=== PATIENT | male | born 1970 | race Caucasian/White ===

== ENCOUNTER 2024-04-02 11:30 | Inpatient (IN) | payer OTHER, SELFPAY ==
[2024-04-02 11:31] VITALS: BP 153/87; PULSE 102; RESP 18; TEMP 36.8; O2SAT 94; BMI 31.1
--- NOTE | 2024-04-02 11:35 | ED.C_ITS ---
HPI - Psych 2 General: Chief Complaint: Psychiatric Symptoms Stated Complaint: SI Time Seen by Provider: 04/02/24 11:31 Source: patient Mode of arrival: ambulatory Limitations: no limitations History of Present Illness: 53-year-old male who is here with EMS [facility] that he has been having suicidal ideations. He states that he has been having increasing depression with thoughts to kill himself over the last week. He has a plan of hanging himself or shooting himself. Associated symptoms: Reports depression and suicidal ideation Related Data Home Medications ?Medication ?Instructions ?Recorded ?Confirmed No Known Home Medications 04/02/2408/19 Review of Systems 2 Const: Denies: fever(s), chills, body aches or change in appetite ENMT: Denies: throat pain or dental pain Card: Denies: chest pain Resp: Denies: dyspnea GI: Denies: abdominal pain, nausea, vomiting or diarrhea Musc: Denies: neck pain or back pain Skin/Breast: Denies: rash Neuro: Denies: headache(s) Psych: Reports: depression and suicidal ideation Physical Exam 2 Const: COMMON NORMALS: no acute distress, patient oriented x3 and healthy appearing HENMT: COMMON NORMALS: normocephalic and atraumatic HEAD & SCALP: n ormocephalic and atraumatic Eye: COMMON NORMALS: conjunctivae normal CONJUNCTIVA: Yes conjunctivae normal Neck/C-Spine: COMMON NORMALS: full ROM and supple Chest: COMMONS NORMALS: normal inspection of the chest Resp: COMMON NORMALS: normal respiratory effort Cardio: COMMON NORMALS: regular rate, regular rhythm and No murmurs present (Cardio) RATE: regular rate RHYTHM: regular rhythm GI: COMMON NORMALS: Normal to inspection, nondistended, normoactive bowel sounds present, Soft to palpation, non-tender and no masses PALPATION: Yes Soft to palpation Extremity: COMMON NORMALS: normal to inspection and full ROM Neuro: COMMON NORMALS: patient oriented x3, moves all extremities and no focal motor deficits Psych: COMMON NORMALS: mental status grossly normal, Normal thought process present and cooperative MOOD & AFFECT: Yes depressed mood THOUGHT PROCESS: Normal thought process present THOUGHT CONTENT: Yes Suicidality present Skin: COMMON NORMALS: no rashes or lesions noted and no wounds GENERAL SKIN EXAM: no rashes or lesions noted Course 2 Vital Signs: Vital signs: Vital Signs Temperature 98.2 F 04/02/24 11:31 Pulse Rate 102 H 04/02/24 11:31 Respiratory Rate 18 04/02/24 11:31 Blood Pressure 153/87 04/02/24 11:31 Pulse Oximetry 94 04/02/24 11:31 Oxygen Delivery Me thod Room Air 04/02/24 11:31 MDM - Psych Medical Decision Making Patient presents here with suicidal ideations patient is medically cleared I spoke to psychiatrist will admit at this time. Medical Records I reviewed the patient's medical records. Lab Data I reviewed the patient's lab results. 04/02/24 12:04 04/02/24 12:04 Laboratory Results WBC 10.89 10^3/uL (3.29-11.43) 04/02/24 12:04 RBC 5.35 10^6/uL (3.85-5.65) 04/02/24 12:04 Hgb 16.30 g/dL (11.27-16.99) 04/02/24 12:04 Hct 46.5 % (37-53) 04/02/24 12:04 MCV 86.9 fl (82-101) 04/02/24 12:04 MCH 30.5 pg (27-33) 04/02/24 12:04 MCHC 35.1 g/dL (30-55) 04/02/24 12:04 RDW 12.1 % (12.1-15.1) 04/02/24 12:04 Plt Count 237 10^3/cmm (157-399) 04/02/24 12:04 MPV 9.3 fL (7.4-10.4) 04/02/24 12:04 Neut % (Auto) 68.3 % 04/02/24 12:04 Lymph % (Auto) 24.1 % 04/02/24 12:04 Dixie % (Auto) 6.2 % 04/02/24 12:04 Eos % (Auto) 0.3 % 04/02/24 12:04 Baso % (Auto) 0.7 % 04/02/24 12:04 Neut # (Auto) 7.45 10^3/uL (1.8-7.7) 04/02/24 12:04 Lymph # (Auto) 2.6 10^3/uL (0.8-4.8) 04/02/24 12:04 Dixie # (Auto) 0.7 10^3/uL (0.2-0.9) 04/02/24 12:04 Eos # (Auto) 0.0 10^3/uL (0.0-0.8) 04/02/24 12:04 Baso # (Auto) 0.1 10^3/uL (0.0-0.1) 04/02/24 12:04 Nucleated RBC % (auto) 0 % 04/02/24 12:04 Nucleated RBCs # 0.0 /100WBC 04/02/24 12:04 Sodium 136 mmol/L (136-145) 04/02/24 12:04 Potassium 3.9 mmol/L (3.5-5.1) 04/02/24 12:04 Chloride 97 mmol/L (98-107) L 04/02/24 12:04 Carbon Dioxide 24 mmol/L (22-29) 04/02/24 12:04 Anion Gap 18.9 (5-19) 04/02/24 12:04 BUN 8 mg/dL (6-20) 04/02/24 12:04 Creatinine 0.8 mg/dL (0.7-1.2) 04/02/24 12:04 GFR Calculation 100.7 mL/min (90-130) 04/02/24 12:04 Glucose 108 mg/dL (65-115) 04/02/24 12:04 Calculated Osmolality 281 mOsm/kg (285-295) L 04/02/24 12:04 Calcium 9.4 mg/dL (8.5-10.5) 04/02/24 12:04 Total Bilirubin 0.7 mg/dL (0.15-1.2) 04/02/24 12:04 AST 26 U/L (0-40) 04/02/24 12:04 ALT 22 U/L (0-41) 04/02/24 12:04 Alkaline Phosphatase 65 U/L (40-130) 04/02/24 12:04 Total Protein 7.8 g/dL (6.6-8.7) 04/02/24 12:04 Albumin 5.0 g/dL (3.5-5.2) 04/02/24 12:04 Globulin 2.8 g/dL (1.3-4.6) 04/02/24 12:04 Salicylates < 0.3 mg/dL (3-10) L 04/02/24 12:04 Urine Opiates Screen Negative ng/mL (Negative) 04/02/24 11:43 Acetaminophen < 5.0 ug/mL (10-30) L 04/02/24 12:04 Ur Barbiturates Screen Negative ng/mL (Negative) 04/02/24 11:43 Ur Phencyclidine Scrn Negative ng/mL (Negative) 04/02/24 11:43 Ur Amphetamines Screen Positive ng/mL (Negative) H 04/02/24 11:43 U Benzodiazepines Scrn Negative ng/mL (Negative) 04/02/24 11:43 Urine Cocaine Screen Negative ng/mL (Negative) 04/02/24 11:43 U Marijuana (THC) Screen Positive ng/mL (Negative) H 04/02/24 11:43 Ethyl Alcohol < 10 mg/dL (0-10) 04/02/24 12:04 No radiology studies performed this visit Discharge Plan Discharge Patient Disposition: Admitted As Inpatient Clinical Impression: Suicidal ideation Condition: Stable Prescriptions: No Action No Known Home Medications Print Language: Norwegian Coding Level of Care Code ED Trainmaster for Maritza Saucedo
--- NOTE | 2024-04-02 12:00 | PC.NURSE ---
96 hour hold rights read and reviewed with patient. Wilian from security present during reading of rights. Patient verbalized understandings and copy of rights given to patient.
[2024-04-02 12:19] LABS: Basophils # 0.1 10^3/uL (0.0-0.1); Basophils % 0.7 %; Eosinophils % 0.3 %; Hematocrit 46.5 % (37-53); Lymphocytes # 2.6 10^3/uL (0.8-4.8); Lymphocytes % 24.1 %; Mean Corpuscular HGB Conc 35.1 g/dL (30-55); Mean Corpuscular Hemoglobin 30.5 pg (27-33); Mean Corpuscular Volume 86.9 fl (82-101); Mean Platelet Volume 9.3 fL (7.4-10.4); Monocytes # 0.7 10^3/uL (0.2-0.9); Monocytes % 6.2 %; Neutrophils # 7.45 10^3/uL (1.8-7.7); Neutrophils % 68.3 %; Nucleated Red Blood Cells % 0 %; Platelet Count 237 10^3/cmm (157-399); Red Blood Count 5.35 10^6/uL (3.85-5.65); Red Cell Distribution Width 12.1 % (12.1-15.1); White Blood Count 10.89 10^3/uL (3.29-11.43)
[2024-04-02 12:23] LABS: Amphetamines Screen Urine Positive (Negative); Barbiturates Screen Urine Negative (Negative); Benzodiazepines Screen Urine Negative (Negative); Cocaine Screen Urine Negative (Negative); Opiate Screen Urine Negative (Negative); PCP Screen Urine Negative (Negative); THC Screen Urine Positive (Negative)
[2024-04-02 12:38] LABS: Alanine Aminotransferase 22 U/L (0-41); Alkaline Phosphatase 65 U/L (40-130); Anion Gap 18.9 (5-19); Aspartate Amino Transferase 26 U/L (0-40); Blood Urea Nitrogen 8 mg/dL (6-20); Calcium 9.4 mg/dL (8.5-10.5); Carbon Dioxide 24 mmol/L (22-29); Chloride 97 mmol/L (98-107); Creatinine Clr Calc Pharmacy 109.4368; Globulin 2.8 g/dL (1.3-4.6); Glomerular Filtration Rate 100.7 mL/min (90-130); Glucose 108 mg/dL (65-115); Osmolality Calculated 281 mOsm/kg (285-295); Potassium 3.9 mmol/L (3.5-5.1); Sodium 136 mmol/L (136-145); Total Bilirubin 0.7 mg/dL (0.15-1.2); Total Protein 7.8 g/dL (6.6-8.7)
[2024-04-02 12:44] LABS: Acetaminophen < 5.0 ug/mL (10-30); Alcohol Level < 10 mg/dL (0-10); Salicylate < 0.3 mg/dL (3-10)
[2024-04-02 13:33] VITALS: BP 146/84; PULSE 97; O2SAT 96
[2024-04-02 14:04] VITALS: BP 165/95; PULSE 109; RESP 18; TEMP 37.4; O2SAT 97
--- NOTE | 2024-04-02 14:42 | PC.ADMIT ---
[address] [place] Admission Note: The patient,Johan Nelson,53 y/o, was given written information regarding hospital policies, unit procedures and contact persons. Patient's smoking status: . Vital Signs - 8 hr 04/02/24 11:31 04/02/24 13:33 04/02/24 14:07 Temperature 98.2 F Pulse Rate 102 H 97 Respiratory Rate 18 Blood Pressure 153/87 146/84 Pulse Oximetry 94 96 Oxygen Delivery Method Room Air Room Air ADMITTED FROM [facility] ER AT 1345 VIA WHEELCHAIR, SECURITY AND ER STAFF ON A 96 HOUR INVOLUNTARY HOLD THAT ENDS ON 04/08/24@1135. PT PRESENTS DISHOVELED WITH POOR HYGIENE NOTED. ENDORSES INTRUSIVE SUICIDAL THOUGHTS WITH NO SPECIFIC PLAN. DENIES HI AND AVH AT THIS TME. DENIES PAIN. SKIN ASSESSMENT UNREMARKABLE. RATES ANXIETY AND DEPRESSION 12/04. REPORTS HE TAKES NO HOME MEDICATIONS AND HAS NO KNOWN DRUG ALLERGIES. PT STATES HE IS SUPPOSE TO MEET WITH THE NE TOMORROW TO GET AN APARTMENT AND GO TO A YEAR LONG TREATMENT. [facility] [place] AND THIS RN DID GIVE IT TO HIM TO CALL. PT IS WANTING TO SPEAK TO THE IMPERSONATOR CHARACTER AND RN INFORMED CASE MANAGEMETN OF PTS ARRIVAL. LABS SHOW PT WAS POSITIVE FOR THC AND AMPHETAMINES. PT DOES REPORT DRINKING AND USING THC, METHAMPHETAMINES AND COCAINE LAST NIGHT. PT IS HOMELESS AND LIVES IN A HOTEL AND IS WANTING RESOURCES. ORIENTATED TO UNIT. ALL QUESTIONS WERE ANSWERED AND SUPPORT VOICEDS.
[2024-04-02] MEDS: bismuth subsalicylate 240 mL Btl 15 ML PO (19:43)
[2024-04-02] MEDS: hyDROXYzine 25 mg Capsule 50 MG PO (20:32)
[2024-04-02 21:54] VITALS: BP 147/68; PULSE 106; RESP 18; TEMP 37; O2SAT 97
[2024-04-02] MEDS: acetaminophen 325 mg Tablet 650 MG PO (22:45)
[2024-04-02] MEDS: trazodone 50 mg Tablet PO (23:10)
[2024-04-03] MEDS: bismuth subsalicylate 240 mL Btl 15 ML PO (00:13)
[2024-04-03] MEDS: OLANZapine 5 mg ODT PO (00:13)
[2024-04-03 01:58] VITALS: BP 130/87; PULSE 112; RESP 20; TEMP 36.6; O2SAT 97
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
[2024-04-03] MEDS: atomoxetine 40 mg Capsule PO (13:49)
[2024-04-03 14:00] VITALS: BP 116/79; PULSE 110; RESP 16; TEMP 36.7; O2SAT 97
[2024-04-03 22:00] VITALS: BP 115/73; PULSE 105; RESP 17; TEMP 36.7; O2SAT 95
[2024-04-04 00:55] VITALS: BP 127/83; PULSE 96; RESP 18; TEMP 36.3; O2SAT 96
[2024-04-04] MEDS: thiamine 100 mg/mL 2mL SDV IM (01:57)
[2024-04-04 04:00] VITALS: BP 122/76; PULSE 98; RESP 17; TEMP 36.7; O2SAT 97
--- NOTE | 2024-04-04 07:13 | P.NPUPN_ITS ---
Subjective NPU 2 Subjective: Patient presented today reporting that things are going okay. He reports he received the Strattera and he denied any problems with it. We continue to discuss the plan moving forward to consider the naltrexone and possibly an antidepressant. He reports he is doing okay from a standpoint of withdrawal. He denied any side effects to any medications. Mental Status Exam 2 MSE Comments: This is a well-nourished well-developed white male in hospital scrubs with poor grooming and intermittent eye contact looking older than his stated age. No abnormal movements were appreciated except for moderate psychomotor retardation as well as noteworthy tremor of the resting variety that seems to mostly involve head and neck. He was cooperative with exam in mild to moderate distress. Speech was decreased rate and volume. Mood described as depressed. His affect was flat and mood congruent. Thought process was linear and organized. Thought contact: Patient endorsed suicidal but denied homicidal ideation, there were no delusions reported or noted, patient denied auditory or visual hallucinations. Reports deep thoughts about speculation and new things, with passive wishes and thoughts of not waking up being fine, but no active suicidal intent. Denies any current thoughts to hurt or kill anyone else. Experiences visual hallucinations during alcohol withdrawal. Reports feelings of helplessness, hopelessness, worthlessness, and low energy, with associated difficulty sleeping. Describes current mood as having deep thoughts. Reports anxiety with constant worrying about various things. Attention and concentration appeared intact and memory appeared mostly reliable but none were formally tested. Patient is alert and oriented to person, place time and situation. Insight was poor. Judgment and impulse control appears impaired. Vitals/I&O/Wt Last Vital Signs Temp 98.0 F 04/04/24 04:00 Pulse 98 04/04/24 04:00 Resp 17 04/04/24 04:00 BP 122/76 04/04/24 04:00 Pulse Ox 97 04/04/24 04:00 O2 Del Method Room Air 04/03/24 14:00 Weight last 48 hrs Weight 87.543 kg Data NPU 04/02/24 12:04 04/02/24 12:04 A&P Assessment and plan (1) Suicidal ideation: (2) Alcohol use disorder, moderate, dependence: (3) Cannabis use disorder, moderate, dependence: (4) Methamphetamine use disorder, moderate, dependence: (5) Depression: (6) Anxiety: Plan This is a 53-year-old male unknown through past treatments who presents with depression, anxiety, and significant addiction with methamphetamine and cannabis positive on UDS and reports of alcohol use multiple days of the week. The patient is experiencing significant issues related to drug addiction, including recent methamphetamine use, and has a history of depression and anxiety. There is a noted family history of mental health issues and addiction. The patient has expressed passive suicidal ideation and has a history of multiple psychiatric hospitalizations. There is also a history of ADHD, and the patient is open to considering Strattera for management. The patient has been diagnosed with a thyroid condition, for which the thyroid was removed, but is not currently taking prescribed medication. Plan Start naltrexone after a day to help dissuade alcohol use. Began Strattera 40 mg po qam . 1. Consider medication we discussed considering acamprosate or other medication to assist with alcohol use. 2. Continue every 15 minute checks for safety. 3. Encourage individual, group and milieu therapies. 4. Encourage sober living treatment after discharge at the highest level of care to which he is willing to commit. 5. CIWA protocol with significant attention to the fact that he has a history of withdrawal seizures. PDMP PDMP Reviewed: Not Reviewed Involuntary Hold Information 2 96 Hour Hold: 96 Hour Involuntary Admission: Yes 96 Hour Hold Ending Date: 04/08/24 96 Hour Hold Ending Time: 11:35 Other Hold: Hold End Date: 04/08/24 Attestations NPU 2 Medical Necessity Statement*: Inpatient hospitalization is medically necessary and?the clinically appropriate intervention at this time.? We will monitor/initiate medications and make changes as indicated.? The patient?s likely length of stay is 3-5 days. Coding Level of Care Code Acute Code for [facility] Fwd Diagnoses Suicidal ideation R45.851 Alcohol use disorder, moderate, dependence F10.20 Cannabis use disorder, moderate, dependence F12.20 Methamphetamine use disorder, moderate, dependence F15.20 Depression F32.A Anxiety F41.9
[2024-04-04 07:59] VITALS: BP 113/72; PULSE 96; RESP 17; TEMP 36.6; O2SAT 95
[2024-04-04] MEDS: multivitamin therapeutic Tablet 1 TAB PO (08:22)
[2024-04-04] MEDS: folic acid 1 mg Tablet PO (08:22)
[2024-04-04] MEDS: thiamine 100 mg Tablet PO (08:23)
[2024-04-04] MEDS: atomoxetine 40 mg Capsule PO (08:23)
[2024-04-04] MEDS: acetaminophen 325 mg Tablet 650 MG PO (12:15)
[2024-04-04 12:16] VITALS: BP 122/80; PULSE 106; RESP 18; O2SAT 96
[2024-04-04 15:31] VITALS: BP 112/77; PULSE 110; RESP 16; TEMP 36.6; O2SAT 95
[2024-04-04 20:00] VITALS: BP 114/72; PULSE 114; RESP 17; TEMP 36.7; O2SAT 96
[2024-04-05] VITALS (7 sets, daily range): BP systolic 109–134; BP diastolic 55–86; PULSE 80–101; RESP 17–18; TEMP 36.6–37.4; O2SAT 94–98
[2024-04-05] MEDS: multivitamin therapeutic Tablet 1 TAB PO (08:07)
[2024-04-05] MEDS: atomoxetine 40 mg Capsule PO (08:08)
[2024-04-05] MEDS: folic acid 1 mg Tablet PO (08:08)
[2024-04-05] MEDS: thiamine 100 mg Tablet PO (08:08)
--- NOTE | 2024-04-05 14:05 | P.NPUPN_ITS ---
Subjective NPU 2 Subjective: 53-year-old male with polysubstance depe ndence admitted with anxiety depression and suicidal ideation. Patient had reported a long history of ADHD. He had reported that he had wished to consider Vivitrol to help with reducing cravings for alcohol use. He had reported having continued suicidal thoughts. He had stated that he was hopeful about going to an inpatient substance abuse treatment center in [place] through the [facility]. He had reported some continued problems with chronic worry and reported some feelings of hopelessness. He reported no side effects from his Strattera at this time. He had continued to report depressed mood. Mental Status Exam 2 MSE Comments: This is a well-nourished well-developed white male in hospital scrubs with poor grooming and intermittent eye contact looking older than his stated age. No abnormal movements were appreciated except for moderate psychomotor retardation as well as a fine tremor of the resting variety that seems to mostly involve head and neck. He was cooperative with exam in mild to moderate distress. Speech was decreased in rate and volume. Mood described as depressed. His affect was flat and mood congruent. Thought process was linear and organized. Thought contact: Patient endorsed suicidal but denied homicidal ideation, there were no delusions reported or noted, patient denied auditory or visual hallucinations. Continued evidence of suicidal ideation was appreciated with no active plan at this time. Denies any current thoughts to hurt or kill anyone else. Experiences visual hallucinations during alcohol withdrawal. Reports feelings of helplessness, hopelessness, worthlessness, and low energy, with associated difficulty sleeping. Attention and concentration appeared poor and memory appeared mostly reliable but none were formally tested. Patient is alert and oriented to person, place time and situation. Insight was poor. Judgment and impulse control appears impaired. Vitals/I&O/Wt Last Vital Signs Temp 98 F 04/05/24 12:00 Pulse 90 04/05/24 12:00 Resp 17 04/05/24 12:00 BP 123/84 04/05/24 12:00 Pulse Ox 97 04/05/24 12:00 O2 Del Method Room Air 04/03/24 14:00 Weight last 48 hrs Weight 86.818 kg Data NPU 04/02/24 12:04 04/02/24 12:04 A&P Assessment and plan (1) Suicidal ideation: (2) Alcohol use disorder, moderate, dependence: (3) Cannabis use disorder, moderate, dependence: (4) Methamphetamine use disorder, moderate, dependence: (5) Depression: (6) Anxiety: Plan This is a 53-year-old male unknown through past treatments who presents with depression, anxiety, and significant addiction with methamphetamine and cannabis positive on UDS and reports of alcohol use multiple days of the week. The patient is experiencing significant issues related to drug addiction, including recent methamphetamine use, and has a history of depression and anxiety. There is a noted family history of mental health issues and addiction. The patient has expressed passive suicidal ideation and has a history of multiple psychiatric hospitalizations. There is also a history of ADHD, and the patient is open to considering Strattera for management. The patient has been diagnosed with a thyroid condition, for which the thyroid was removed, but is not currently taking prescribed medication. Plan Begin oral naltrexone daily with plan for IM vivitrol monthly. Increase strattera to 60mg daily. 1. Consider medication we discussed considering acamprosate or other medication to assist with alcohol use. 2. Continue every 15 minute checks for safety. 3. Encourage individual, group and milieu therapies. 4. Encourage sober living treatment after discharge at the highest level of care to which he is willing to commit. 5. CIWA protocol with significant attention to the fact that he has a history of withdrawal seizures. PDMP PDMP Reviewed: Not Reviewed Involuntary Hold Information 2 96 Hour Hold: 96 Hour Involuntary Admission: Yes 96 Hour Hold Ending Date: 04/08/24 96 Hour Hold Ending Time: 11:35 Other Hold: Hold End Date: 04/08/24 Attestations NPU 2 Medical Necessity Statement*: Inpatient hospitalization is medically necessary and?the clinically appropriate intervention at this time.? We will monitor/initiate medications and make changes as indicated.? The patient?s likely length of stay is 3-5 days. Coding Level of Care Code Acute Code for [facility] Fwd Diagnoses Suicidal ideation R45.851 Alcohol use disorder, moderate, dependence F10.20 Cannabis use disorder, moderate, dependence F12.20 Methamphetamine use disorder, moderate, dependence F15.20 Depression F32.A Anxiety F41.9
[2024-04-05] MEDS: naltrexone hcl 50 mg Tablet PO (14:32)
[2024-04-06 04:00] VITALS: BP 119/82; PULSE 81; RESP 17; TEMP 36.6; O2SAT 96
[2024-04-06 07:14] VITALS: BP 121/81; PULSE 82; RESP 16; TEMP 37; O2SAT 97
[2024-04-06] MEDS: atomoxetine 40 mg Capsule PO ×2 (08:23→17:43)
[2024-04-06] MEDS: thiamine 100 mg Tablet PO (08:24)
[2024-04-06] MEDS: multivitamin therapeutic Tablet 1 TAB PO (08:24)
[2024-04-06] MEDS: folic acid 1 mg Tablet PO (08:24)
[2024-04-06] MEDS: naltrexone hcl 50 mg Tablet PO (08:24)
[2024-04-06 12:00] VITALS: BP 135/74; PULSE 78; RESP 16; TEMP 37; O2SAT 98
--- NOTE | 2024-04-06 14:53 | P.NPUPN_ITS ---
Subjective NPU 2 Subjective: 53-year-old male with polysubstance depe ndence admitted with anxiety, depression and suicidal ideation. The patient had reported that he wished to go to an inpatient substance abuse treatment facility. He had reported that his depression had been better. He had continued to report difficulties with staying on task. He had reported a past history of methamphetamine use but continued to minimize the significance that it had had on his mood. He had reported no cravings for alcohol currently. Patient had been compliant and was able to attend groups. He had reported no side effects from the oral naltrexone at this time. He had reported continued problems with completing tasks. He had described being frequently distracted and unable to sustain attention. He had reported improvement in ADHD symptoms in the past on stimulants. Mental Status Exam 2 MSE Comments: This is a well-nourished well-developed white male in hospital scrubs with poor grooming and intermittent eye contact looking older than his stated age. No abnormal movements were appreciated except for moderate psychomotor retardation as well as a fine tremor of the resting variety that seems to mostly involve head and neck. He was cooperative with exam in mild to moderate distress. Speech was decreased in rate and volume. Mood described as okay. His affect was restricted in range and mood incongruent. Thought process was linear and organized. Thought contact: Patient endorsed suicidal but denied homicidal ideation, there were no delusions reported or noted, patient denied auditory or visual hallucinations. There was no evidence of suicidal ideation or homicidal ideation. He did not appear to be responding to internal stimuli. Attention and concentration appeared poor and memory appeared mostly reliable but none were formally tested. Patient is alert and oriented to person, place, time and situation. Insight was poor. Judgment and impulse control appears impaired. Vitals/I&O/Wt Last Vital Signs Temp 98.6 F 04/06/24 12:00 Pulse 78 04/06/24 12:00 Resp 16 04/06/24 12:00 BP 135/74 04/06/24 12:00 Pulse Ox 98 04/06/24 12:00 O2 Del Method Room Air 04/06/24 12:00 Weight last 48 hrs Weight 86.818 kg Data NPU 04/02/24 12:04 04/02/24 12:04 A&P Assessment and plan (1) Suicidal ideation: (2) Alcohol use disorder, moderate, dependence: (3) Cannabis use disorder, moderate, dependence: (4) Methamphetamine use disorder, moderate, dependence: (5) Depression: (6) Anxiety: Plan This is a 53-year-old male unknown through past treatments who presents with depression, anxiety, and significant addiction with methamphetamine and cannabis positive on UDS and reports of alcohol use multiple days of the week. The patient is experiencing significant issues related to drug addiction, including recent methamphetamine use, and has a history of depression and anxiety. There is a noted family history of mental health issues and addiction. The patient has expressed passive suicidal ideation and has a history of multiple psychiatric hospitalizations. There is also a history of ADHD, and the patient is open to considering Strattera for management. The patient has been diagnosed with a thyroid condition, for which the thyroid was removed, but is not currently taking prescribed medication. Plan Continue naltrexone 50mg daily with plan for IM vivitrol monthly. Increase strattera to 80mg daily. 1. Consider medication we discussed considering acamprosate or other medication to assist with alcohol use. 2. Continue every 15 minute checks for safety. 3. Encourage individual, group and milieu therapies. 4. Encourage sober living treatment after discharge at the highest level of care to which he is willing to commit. 5. CIWA protocol with significant attention to the fact that he has a history of withdrawal seizures. PDMP PDMP Reviewed: Not Reviewed Involuntary Hold Information 2 96 Hour Hold: 96 Hour Involuntary Admission: Yes 96 Hour Hold Ending Date: 04/08/24 96 Hour Hold Ending Time: 11:35 Other Hold: Hold End Date: 04/08/24 Attestations NPU 2 Medical Necessity Statement*: Inpatient hospitalization is medically necessary and?the clinically appropriate intervention at this time.? We will monitor/initiate medications and make changes as indicated.? The patient?s likely length of stay is 3-5 days. Coding Level of Care Code Acute Code for [facility] Diagnoses Suicidal ideation R45.851 Alcohol use disorder, moderate, dependence F10.20 Cannabis use disorder, moderate, dependence F12.20 Methamphetamine use disorder, moderate, dependence F15.20 Depression F32.A Anxiety F41.9
[2024-04-06 16:00] VITALS: BP 130/94; PULSE 83; RESP 16; TEMP 36.9; O2SAT 98
--- NOTE | 2024-04-06 18:37 | PC.NURSE ---
During physical assessment this nurse noted dried, crusty, yellow and brown drainage coming from the patient's right ear. The patient reported to the nurse that prior to admission to the NPU he had been seeing a ENT specialist in [place] and was supposed to have surgery on his ear soon. The patient stated that he was using eardrops prior to being admitted to NPU but was unable to remember the name or dose of the medication. The patient was able to remember the pharmacy. This nurse called the [place] pharmacy in [place], [place] and they reported the client had been prescribed Ofloxacin 0.3% eye gtts, dose was 4 gtts to the right ear BID X 10 days. The nurse stated to the patient that she would report this to the NPU Dr. Delvalle and request it be restarted. The patient then declined and stated no he did not want it ordered in the hospital that he would just take care of it when he got home. The patient was adamant and insisted in front of other NPU staff that these meds not be restarted. This was relayed to charge nurse for heart to heart rounding and passed along in shift report.
[2024-04-06 19:40] VITALS: BP 138/89; PULSE 89; RESP 18; TEMP 36.8; O2SAT 97
[2024-04-06 23:50] VITALS: BP 118/82; PULSE 85; RESP 18; TEMP 36.6; O2SAT 98
[2024-04-07 03:51] VITALS: BP 113/79; PULSE 88; RESP 18; TEMP 36.6; O2SAT 97
[2024-04-07 08:00] VITALS: BP 136/90; PULSE 84; RESP 18; TEMP 36.4; O2SAT 98
[2024-04-07] MEDS: atomoxetine 40 mg Capsule PO ×2 (08:21→18:21)
[2024-04-07] MEDS: thiamine 100 mg Tablet PO (08:21)
[2024-04-07] MEDS: multivitamin therapeutic Tablet 1 TAB PO (08:21)
[2024-04-07] MEDS: naltrexone hcl 50 mg Tablet PO (08:21)
[2024-04-07] MEDS: folic acid 1 mg Tablet PO (08:21)
[2024-04-07 12:00] VITALS: BP 118/85; PULSE 91; RESP 17; TEMP 36.6; O2SAT 97
[2024-04-07 12:33] VITALS: RESP 17
[2024-04-07 14:00] VITALS: BP 116/78; PULSE 81; RESP 17; O2SAT 98
--- NOTE | 2024-04-07 16:02 | W.PM.NPUPNS ---
Subjective NPU Subjective: 53-year-old male with polysubstance dependence admitted with anxiety, depression and suicidal ideation. The patient no longer reported feeling suicidal. He had reported no side effects from his Strattera. He had expressed motivation to consider inpatient substance abuse rehabilitation and was scheduled for an interview tomorrow with the [facility] inpatient unit in [facility]. Patient had reported that he did not wish to take any antidepressants at this time. He had reported no current cravings for alcohol. He was able to attend groups and reported no side effects currently from his naltrexone as well. Mental Status Exam MSE Comments: This is a well-nourished well-developed white male in hospital scrubs with poor grooming and intermittent eye contact looking older than his stated age. No abnormal movements were appreciated except for moderate psychomotor retardation as well as a fine tremor of the resting variety that seems to mostly involve head and neck. He was cooperative with exam in mild to moderate distress. Speech was more productive in rate and volume. Mood described as better. His affect was mood incongruent. Thought process was linear and organized. Thought contact: Patient endorsed no suicidal ot homicidal ideation, there were no delusions reported or noted, patient denied auditory or visual hallucinations. There was no evidence of suicidal ideation or homicidal ideation. He did not appear to be responding to internal stimuli. Attention and concentration appeared poor and memory appeared mostly reliable but none were formally tested. Patient is alert and oriented to person, place, time and situation. Insight was poor. Judgment was improving and impulse control appears poor. Vitals/I&O/Wt Last Vital Signs Temp 97.8 F 04/07/24 12:00 Pulse 91 04/07/24 12:00 Resp 17 04/07/24 12:33 BP 118/85 04/07/24 12:00 Pulse Ox 97 04/07/24 12:00 O2 Del Method Room Air 04/07/24 03:51 Data NPU 04/02/24 12:04 04/02/24 12:04 A&P Assessment and plan (1) Suicidal ideation: (2) Alcohol use disorder, moderate, dependence: (3) Cannabis use disorder, moderate, dependence: (4) Methamphetamine use disorder, moderate, dependence: (5) Depression: (6) Anxiety: Plan This is a 53-year-old male unknown through past treatments who presents with depression, anxiety, and significant addiction with methamphetamine and cannabis positive on UDS and reports of alcohol use multiple days of the week. The patient is experiencing significant issues related to drug addiction, including recent methamphetamine use, and has a history of depression and anxiety. There is a noted family history of mental health issues and addiction. The patient has expressed passive suicidal ideation and has a history of multiple psychiatric hospitalizations. There is also a history of ADHD, and the patient is open to considering Strattera for management. The patient has been diagnosed with a thyroid condition, for which the thyroid was removed, but is not currently taking prescribed medication. Plan Continue naltrexone 50mg daily with plan for IM vivitrol monthly. Increase strattera to 80mg daily. 1. Consider medication we discussed considering acamprosate or other medication to assist with alcohol use. 2. Continue every 15 minute checks for safety. 3. Encourage individual, group and milieu therapies. 4. Encourage sober living treatment after discharge at the highest level of care to which he is willing to commit. 5. CIWA protocol with significant attention to the fact that he has a history of withdrawal seizures. 6. Plan for d/c tommorow if inpatient option at [place] not immediately available. PDMP PDMP Reviewed: Not Reviewed Involuntary Hold Information 96 Hour Hold: 96 Hour Involuntary Admission: Yes 96 Hour Hold Ending Date: 04/08/24 96 Hour Hold Ending Time: 11:35 Other Hold: Hold End Date: 04/08/24 Attestations NPU Medical Necessity Statement*: Inpatient hospitalization is medically necessary and?the clinically appropriate intervention at this time.? We will monitor/initiate medications and make changes as indicated.? The patient?s likely length of stay is 3-5 days. Coding Level of Care Code Acute Code for g Fwd Diagnoses Suicidal ideation R45.851 Alcohol use disorder, moderate, dependence F10.20 Cannabis use disorder, moderate, dependence F12.20 Methamphetamine use disorder, moderate, dependence F15.20 Depression F32.A Anxiety F41.9
[2024-04-07 19:59] VITALS: BP 128/80; PULSE 93; RESP 18; TEMP 36.7; O2SAT 95
[2024-04-08 06:00] VITALS: BP 112/78; PULSE 78; RESP 18; TEMP 36.5; O2SAT 97
[2024-04-08] MEDS: thiamine 100 mg Tablet PO (08:15)
[2024-04-08] MEDS: multivitamin therapeutic Tablet 1 TAB PO (08:15)
[2024-04-08] MEDS: naltrexone hcl 50 mg Tablet PO (08:15)
[2024-04-08] MEDS: folic acid 1 mg Tablet PO (08:15)
[2024-04-08] MEDS: atomoxetine 40 mg Capsule PO (08:15)
[2024-04-08] MEDS: acetaminophen 325 mg Tablet 650 MG PO (12:19)
--- NOTE | 2024-04-08 13:25 | P.NPUPN_ITS ---
Subjective NPU 2 Subjective: 53-year-old male with polysubstance depe ndence admitted with anxiety, depression and suicidal ideation. Patient reported feeling better today. He reported no side effects from his medications other than a headache. He reported that he was hopeful about going to inpatient substance abuse treatment in [facility] and had an interview today scheduled to determine whether he could be sent there soon. Mental Status Exam 2 MSE Comments: This is a well-nourished well-developed white male in hospital scrubs with poor grooming and intermittent eye contact looking older than his stated age. No abnormal movements were appreciated except for moderate psychomotor retardation as well as a fine tremor of the resting variety that seems to mostly involve head and neck. He was cooperative with exam in mild to moderate distress. Speech was more productive in rate and volume. Mood described as better. His affect was brighter on discharge. Thought process was linear and organized. Thought contact: Patient endorsed no suicidal or homicidal ideation, there were no delusions reported or noted, patient denied auditory or visual hallucinations. There was no evidence of suicidal ideation or homicidal ideation. He did not appear to be responding to internal stimuli. Attention and concentration appeared poor and memory appeared mostly reliable but none were formally tested. Patient is alert and oriented to person, place, time and situation. Insight was poor. Judgment was improving and impulse control appeared better. Vitals/I&O/Wt Last Vital Signs Temp 97.7 F 04/08/24 06:00 Pulse 78 04/08/24 06:00 Resp 18 04/08/24 06:00 BP 112/78 04/08/24 06:00 Pulse Ox 97 04/08/24 06:00 O2 Del Method Room Air 04/08/24 06:00 Data NPU 04/02/24 12:04 04/02/24 12:04 A&P Assessment and plan (1) Suicidal ideation: (2) Alcohol use disorder, moderate, dependence: (3) Cannabis use disorder, moderate, dependence: (4) Methamphetamine use disorder, moderate, dependence: (5) Depression: (6) Anxiety: Plan This is a 53-year-old male unknown through past treatments who presents with depression, anxiety, and significant addiction with methamphetamine and cannabis positive on UDS and reports of alcohol use multiple days of the week. The patient is experiencing significant issues related to drug addiction, including recent methamphetamine use, and has a history of depression and anxiety. There is a noted family history of mental health issues and addiction. The patient has expressed passive suicidal ideation and has a history of multiple psychiatric hospitalizations. There is also a history of ADHD, and the patient is open to considering Strattera for management. The patient has been diagnosed with a thyroid condition, for which the thyroid was removed, but is not currently taking prescribed medication. Plan Continue naltrexone 50mg daily with plan for IM vivitrol monthly. Continue strattera to 80mg daily. 1. Consider medication we discussed considering acamprosate or other medication to assist with alcohol use. 2. Continue every 15 minute checks for safety. 3. Encourage individual, group and milieu therapies. 4. Encourage sober living treatment after discharge at the highest level of care to which he is willing to commit. 5. CIWA protocol with significant attention to the fact that he has a history of withdrawal seizures. 6. Plan for d/c today to home or tommorow if inpatient option at [place] not immediately available. PDMP PDMP Reviewed: Not Reviewed Involuntary Hold Information 2 96 Hour Hold: 96 Hour Involuntary Admission: Yes 96 Hour Hold Ending Date: 04/08/24 96 Hour Hold Ending Time: 11:35 Other Hold: Hold End Date: 04/08/24 Attestations NPU 2 Medical Necessity Statement*: Inpatient hospitalization is medically necessary and?the clinically appropriate intervention at this time.? We will monitor/initiate medications and make changes as indicated.? The patient?s likely length of stay is 1-2 days. Coding Level of Care Code Acute Code for [facility] Fwd Diagnoses Suicidal ideation R45.851 Alcohol use disorder, moderate, dependence F10.20 Cannabis use disorder, moderate, dependence F12.20 Methamphetamine use disorder, moderate, dependence F15.20 Depression F32.A Anxiety F41.9
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
[2024-04-08 14:00] VITALS: BP 138/90; PULSE 84; RESP 18; TEMP 36.4; O2SAT 97
[2024-04-08 15:06] VITALS: BP 138/90; PULSE 84; RESP 16; TEMP 36.4; O2SAT 97
== END 2024-04-08 15:36 | disposition home or self-care (01) | DRG 881 ==
LOC: ER 12:50 → NP 12:57
PROVIDERS: Admitting Provider Psychiatry & Neurology Psychiatry; Emergency Provider Emergency Medicine; Visit Provider Psychiatry & Neurology Psychiatry
DX: F32.A Depression, unspecified (principal); R45.851 Suicidal ideations; F15.20 Other stimulant dependence, uncomplicated; F10.20 Alcohol dependence, uncomplicated; F12.20 Cannabis dependence, uncomplicated; F41.9 Anxiety disorder, unspecified; F17.210 Nicotine dependence, cigarettes, uncomplicated; F17.290 Nicotine dependence, other tobacco product, uncomplicated; F90.9 Attention-deficit hyperactivity disorder, unspecified type; E89.0 Postprocedural hypothyroidism
CPT/HCPCS: 36415; 80053; 80306; 80307; 85025; 96372; 97150; 97165; 99285; J3411